=== PATIENT | male | born 1990 | race Two or more races ===

== ENCOUNTER 2021-02-05 15:25 | Emergency (ER) | payer MEDICAID ==
--- NOTE | 2021-02-05 16:10 | CR ---
PROCEDURE INFORMATION: Exam: XR Right Ankle Exam date and time: 02/05/2021 3:44 PM Age: 30 years old Clinical indication: Injury or trauma; Fall; Blunt trauma; Ankle; Right; Additional info: Tripped on stair and felt pop in right ankle TECHNIQUE: Imaging protocol: XR Right ankle. Views: 3 or more views. COMPARISON: No relevant prior studies available. FINDINGS: Bones/joints: The mortise joint space is symmetric. There is no evidence of acute fracture. Soft tissues: There is mild soft tissue swelling. IMPRESSION: Soft tissue swelling without acute bony abnormality.
--- NOTE | 2021-02-05 17:12 | EDM.PDOC ---
ED HPI GENERAL MEDICAL PROBLEM - General Chief Complaint: Lower Extremity Injury/Pain Stated Complaint: BROKE RIGHT ANKLE([id number]) Time Seen by Provider: 02/05/21 17:09 Source of Information: Reports: Patient, RN, RN Notes Reviewed History Limitations: Reports: No Limitations - History of Present Illness INITIAL COMMENTS - FREE TEXT/NARRATIVE: Lina is a 30 y/o male who presents to the ED via personal vehicle with complaints of pain to right ankle. The patient reports he was carrying his child down the stairs when his ankle inwardly rotated. He states the injury occurred approximately one hour prior to his arrival to this facility. The patient reports a history of diabetes mellitus Type 2 and is concerned his injury will not heal properly. He denies loss of motor or sensory function to the affected extremity. He denies history of injury or trauma to the right ankle. He has taken no medications or performed any supportive cares for his injury. - Related Data Allergies Allergy/AdvReac Type Severity Reaction Status Date / Time No Known Allergies Allergy Verified 02/05/21 15:37 Home Meds: Home Meds . [No Known Home Meds] 02/05/21 [History] Review of Systems - Review of Systems Review Of Systems: Comprehensive ROS is negative, except as noted in HPI. ED EXAM, GENERAL - Physical Exam Exam: See Below Exam Limited By: No Limitations General Appearance: Alert, No Apparent Distress Eye Exam: Bilateral Eye: EOMI, Normal Inspection, PERRL (3mm) Ears: Normal External Exam, Hearing Grossly Normal Nose: Normal Inspection Throat/Mouth: Normal Inspection, Normal Oropharynx, Normal Voice, No Airway Compromise Head: Atraumatic, Normocephalic Neck: Normal Inspection, Non-Tender, Full Range of Motion Respiratory/Chest: No Respiratory Distress, Lungs Clear, Normal Breath Sounds, No Accessory Muscle Use, Chest Non-Tender Cardiovascular: Normal Peripheral Pulses, Regular Rate, Rhythm, No Gallop, No Murmur, No Rub Peripheral Pulses: 1+: Posterior Tibial (L), Posterior Tibial (R), 2+: Radial (L), Radial (R), Dorsalis Pedis (L), Dorsalis Pedis (R) GI/Abdominal: Normal Bowel Sounds, Soft, Non-Tender (Male) Exam: Deferred Rectal (Males) Exam: Deferred Back Exam: Normal Inspection, Full Range of Motion Extremities: Normal Range of Motion, Normal Capillary Refill, Joint Swelling (To right lateral ankle), Leg Pain (To right lateral ankle). No: Increased Warmth, Mottled, Pallor Neurological: Alert, Oriented, CN II-XII Intact, Normal Cognition, Normal Reflexes, No Motor/Sensory Deficits, Abnormal Gait (Right limping gait) Psychiatric: Normal Affect, Normal Mood Skin Exam: Warm, Dry, Intact, Normal Color, No Rash. No: Cyanosis, Ecchymosis, Erythema, Jaundice, Mottled, Pallor, Petechiae Lymphatic: No Adenopathy Course - Vital Signs Last Recorded V/S: Last Vital Signs Temp 98.1 F 02/05/21 16:00 Pulse 78 02/05/21 16:00 Resp 16 02/05/21 16:00 BP 124/66 02/05/21 16:00 Pulse Ox 99 02/05/21 16:00 - Radiology Interpretation Free Text/Narrative:: [facility] Final Radiology Report Call: [phone] assistance Online chat: [email or web address] Name: LINA VILLARREAL Age: 30Years M Date: 02/05/2021 SSN: -- : 1990 Study: CR ANKLE MIN 3V RT Requesting Physician: Emily Blanca Images: 3 Addl Studies: Provided Clinical History: tripped on stair and felt pop in right ankle Contrast: Contrast Medium: Contrast Amount: Contrast Method: CONFIDENTIALITY STATEMENT This report is intended only for use by the referring physician, and only in accordance with law. If you received this in error, call [phone]. Page 1 of 1 PROCEDURE INFORMATION: Exam: XR Right Ankle Exam date and time: 02/05/2021 3:44 PM Age: 30 years old Clinical indication: Injury or trauma; Fall; Blunt trauma; Ankle; Right; Additional info: Tripped on stair and felt pop in right ankle TECHNIQUE: Imaging protocol: XR Right ankle. Views: 3 or more views. COMPARISON: No relevant prior studies available. FINDINGS: Bones/joints: The mortise joint space is symmetric. There is no evidence of acute fracture. Soft tissues: There is mild soft tissue swelling. IMPRESSION: Soft tissue swelling without acute bony abnormality. Thank you for allowing us to participate in the care of your patient. Dictated and Authenticated by: Levi Fuentes MD 02/05/2021 4:09 PM Central Time ([place] & [place]) - Re-Assessments/Exams Free Text/Narrative Re-Assessment/Exam: 02/05/21 X-ray of right ankle obtained. Findings of examination and imaging reviewed with patient. Supportive cares for right ankle sprain discussed. Patient instructed to follow up with primary care provider regarding todays visit. Red flag signs and symptoms which would warrant immediate reevaluation reviewed. Patient verbalized understanding and agreement with the plan of care. Departure - Departure Time of Disposition: 17:17 Disposition: Home, Self-Care 01 Condition: Good Clinical Impression: Right ankle pain Qualifiers: Chronicity: acute Qualified Code(s): M25.571 - Pain in right ankle and joints of right foot - Discharge Information *PRESCRIPTION DRUG MONITORING PROGRAM REVIEWED*: Not Applicable *COPY OF PRESCRIPTION DRUG MONITORING REPORT IN PATIENT MARGE: Not Applicable Instructions: Ankle Sprain, [id number], Ankle Pain Referrals: Uriel Knapp NP [Primary Care Provider] - Forms: ED Department Discharge Additional Instructions: 1.) You may take ibuprofen (Advil/Motrin) 400mg every six hours, as pain and swelling persist. You may also take acetaminophen (Tylenol) 650mg every six hours, as pain persists. You may stagger these medications so you are taking a dose of either every three hours. 2.) You may apply cold compresses to the area as pain and swelling persist, 20 minutes every hour. 3.) You may apply BioFreeze (or a similar ointment/cream) to the affected area, as pain persists. 4.) Follow up with your primary care provider in 5-7 days regarding todays visit should pain persist or worsen.
== END 2021-02-05 17:20 | disposition home or self-care (01) ==
LOC: EDBD 15:25 → DL.ED 15:25
DX: M25.571 Pain in right ankle and joints of right foot (principal)
CPT/HCPCS: 73610-RT; 99283-25

== ENCOUNTER 2021-05-01 09:42 | Emergency (ER) | payer MEDICAID | END 2021-05-01 11:09 | disposition home or self-care (01) | LOC: DL.ED 09:42 | DX: K04.7 Periapical abscess without sinus (principal); E78.00 Pure hypercholesterolemia, unspecified; I10 Essential (primary) hypertension; E11.9 Type 2 diabetes mellitus without complications; Z79.899 Other long term (current) drug therapy | CPT/HCPCS: 99282 ==

== ENCOUNTER 2022-03-04 21:04 | Emergency (ER) | payer BC ==
[2022-03-04] MEDS ORDERED: Ketorolac 30 MG/ML SDV IM ONE (21:59)
[2022-03-04] MEDS ORDERED: Cyclobenzaprine 10 MG Tab ONE (23:23)
[2022-03-04] MEDS ORDERED: Ketorolac 10 MG Tab ONE (23:23)
== END 2022-03-04 23:32 | disposition home or self-care (01) ==
LOC: DL.ED 21:04
DX: M54.42 Lumbago with sciatica, left side (principal); E11.9 Type 2 diabetes mellitus without complications; F17.210 Nicotine dependence, cigarettes, uncomplicated
CPT/HCPCS: 72100; 99283; A9270

== ENCOUNTER 2022-09-25 17:54 | Emergency (ER) | payer BC ==
[2022-09-25] MEDS ORDERED: Ketorolac 30 MG/ML SDV IM ONE (20:37)
[2022-09-25] MEDS ORDERED: Take Home: Amoxicillin/Clavulanate K 875-125 MG Tab, 6 Tab Pack PO ONE (21:20)
== END 2022-09-25 21:41 | disposition home or self-care (01) ==
LOC: DL.ED 17:54
DX: K04.7 Periapical abscess without sinus (principal); I10 Essential (primary) hypertension; E11.9 Type 2 diabetes mellitus without complications; Z79.84 Long term (current) use of oral hypoglycemic drugs; Z79.899 Other long term (current) drug therapy
CPT/HCPCS: 96372; 99282; A9270; J1885

== ENCOUNTER 2023-04-30 22:55 | Emergency (ER) | payer BC ==
[2023-05-01] MEDS ORDERED: Ketorolac 10 MG Tab PO ONE (00:45)
== END 2023-05-01 00:55 | disposition home or self-care (01) ==
LOC: DL.ED 22:55
DX: S46.911A Strain of unspecified muscle, fascia and tendon at shoulder and upper arm level, right arm, initial encounter (principal); I10 Essential (primary) hypertension; E11.9 Type 2 diabetes mellitus without complications; Z79.899 Other long term (current) drug therapy; X50.0XXA Overexertion from strenuous movement or load, initial encounter
CPT/HCPCS: 99283; A9270-GY

== ENCOUNTER 2024-01-28 19:03 | Emergency (ER) | payer BC ==
[2024-01-28] MEDS ORDERED: Silver Sulfadiazine 1% Crm 400 GM Jar TOP ONE (22:50)
[2024-01-28] MEDS ORDERED: Silver Sulfadiazine 1% Crm 50 GM Tube TOP ONE (22:55)
[2024-01-28] MEDS: Ketorolac 30 MG/ML SDV IM ONE (23:21)
== END 2024-01-28 23:38 | disposition home or self-care (01) ==
LOC: DL.ED 19:03
DX: T23.261A Burn of second degree of back of right hand, initial encounter (principal); T22.211A Burn of second degree of right forearm, initial encounter; T23.231A Burn of second degree of multiple right fingers (nail), not including thumb, initial encounter; I10 Essential (primary) hypertension; E11.9 Type 2 diabetes mellitus without complications; Z79.899 Other long term (current) drug therapy; Z88.8 Allergy status to other drugs, medicaments and biological substances; X15.3XXA Contact with hot saucepan or skillet, initial encounter
CPT/HCPCS: 16020; 99283; A9270; J1885